=== PATIENT | female | born 1970 | race Two or more races ===

== ENCOUNTER 2017-09-24 12:42 | Emergency (ER) | payer OTHER ==
[~2017-09-24] VITALS: Ht 165.1 cm; Wt 96.1 kg
[~2017-09-24 12:42] MED LIST: ZOFRAN4 MG PO
[2017-09-24 13:27] LABS: HEMATOCRIT 43.1 % (36.0-46.0); HEMOGLOBIN 14.5 G/DL (11.9-15.5); MCH 29.1 PG (29.0-34.0); MCHC 33.6 G/DL (30.0-36.0); MCV 86.5 FL (83-99); PLATELET COUNT 222 K/uL (156-360); RBC DIS.WIDTH-CV 11.8 % (11.8-14.6); RBC DIS.WIDTH-SD 37.3 % (39-53); RED BLOOD COUNT 4.98 M/uL (3.80-5.20); WHITE BLOOD COUNT 12.3 K/uL (4.1-10.2)
[2017-09-24 13:36] LABS: CHLORIDE 104 mEq/L (99-109); POTASSIUM 4.3 mEq/L (3.7-5.4); SODIUM 141 mEq/L (136-147)
[2017-09-24 13:38] LABS: GLUCOSE 102 mg/dL (70-99)
[2017-09-24 13:42] LABS: CREATININE 0.9 mg/dL (0.6-1.3); GFR ESTIMATE (CALCULATED) > 59 mL/min/
[2017-09-24 13:43] LABS: UREA NITROGEN (BUN) 21 mg/dL (9-23)
[2017-09-24 13:51] LABS: QUANTITATIVE HCG < 4.0 MIU/ML
[2017-09-24 14:05] LABS: MONOSPOT (MONONUCLEOSIS SEROL) NEGATIVE
[2017-09-24] MEDS ORDERED: PREDNISONE20 MG PO (16:16)
[2017-09-24] MEDS ORDERED: VENTOLIN HFA18 GM IH (16:17)
[2017-09-24 16:45] VITALS: BP 113/63
== END 2017-09-24 17:16 | disposition home or self-care (01) ==
LOC: EME 12:42
PROVIDERS: Physician Assistant
DX: J06.9 Acute upper respiratory infection, unspecified (principal); J45.909 Unspecified asthma, uncomplicated; Z87.891 Personal history of nicotine dependence
CPT/HCPCS: 71046; 80048; 84702; 85027; 86308; 87081; 87502; 87651 90; 94640; 99281; 99284

== ENCOUNTER 2017-10-12 11:48 | Emergency (ER) | payer OTHER ==
[~2017-10-12] VITALS: Ht 165.1 cm; Wt 97.1 kg
[~2017-10-12 11:48] MED LIST changes: +PREDNISONE20 MG PO; +VENTOLIN HFA18 GM IH
[2017-10-12] MEDS ORDERED: TOBREX5 ML BOTH EYES (12:55)
[2017-10-12] MEDS ORDERED: XYLOCAINE VISC100 ML MISC (12:55)
[2017-10-12 13:23] VITALS: BP 117/89
== END 2017-10-12 13:23 | disposition home or self-care (01) ==
LOC: EME 11:48
DX: H10.9 Unspecified conjunctivitis (principal); J02.9 Acute pharyngitis, unspecified
CPT/HCPCS: 87651 90; 99281; 99283